=== PATIENT | male | born 1995 | race American Indian/Alaskan Native ===

== ENCOUNTER 2017-10-03 16:09 | Emergency (ER) | payer SELFPAY ==
--- NOTE | 2017-10-03 23:19 | Emergency Department Report ---
- General Chief Complaint: Upper Respiratory Infection Stated Complaint: COLD Time Seen by Provider: 10/03/17 23:08 Source: patient Mode of arrival: Ambulatory Limitations: No Limitations - History of Present Illness Initial Comments: 22-year-old male presents with complaint of one week of productive cough sore throat and body aches. Patient is awake alert and oriented 3. Speaking in full sentences no audible wheezing or stridor. also complaining of nasal congestion. Denies fevers or chills. Denies abdominal pain chest pain palpitations or shortness of breath at rest. Also primarily complaining of nasal discharge and nasal congestion. States he quit smoking 2 weeks ago. Minimal relief of symptoms with Mucinex. Possible sick contacts at work as per patient. MD Complaint: cough, sore throat, rhinorrhea, nasal congestion Onset/Timin -: week(s) Severity: moderate Improves With: nothing Context: sick contacts Associated Symptoms: rhinorrhea, nasal congestion, sore throat, cough Treatments Prior to Arrival: "cold medicine" - Related Data Previous Rx's Medication Instructions Recorded Last Taken Type ALBUTEROL Inhaler [ProAir HFA 2 puff IH QID PRN #1 inhalation 10/04/17 Unknown Rx Inhaler] Azithromycin [Zithromax Z-FREEDOM] 250 mg PO QDAY #1 pack 10/04/17 Unknown Rx Fluticasone [Flonase] 1 spray NS QDAY PRN #1 bottle 10/04/17 Unknown Rx Naproxen 500 mg PO BID PRN #30 tablet 10/04/17 Unknown Rx Phenylephrine/Dm/Acetaminop/GG 10 ml PO Q6H PRN #1 liquid 10/04/17 Unknown Rx [Mucinex Hsra-Fvb-Vbqwdmkygx Lq] Allergies Allergy/AdvReac Type Severity Reaction Status Date / Time No Known Allergies Allergy Unverified 10/03/17 16:21 ED Review of Systems ROS: Stated complaint: COLD Other details as noted in HPI Constitutional: malaise. denies: chills, fever Eyes: denies: eye pain, eye discharge, vision change ENT: denies: ear pain, throat pain Respiratory: cough. denies: shortness of breath, wheezing Cardiovascular: denies: chest pain, palpitations Endocrine: no symptoms reported Gastrointestinal: denies: abdominal pain, nausea, diarrhea Genitourinary: denies: urgency, dysuria Musculoskeletal: denies: back pain, joint swelling, arthralgia Skin: denies: rash, lesions Neurological: denies: headache, weakness, paresthesias Psychiatric: denies: anxiety, depression Hematological/Lymphatic: denies: easy bleeding, easy bruising ED Past Medical Hx - Past Medical History Previous Medical History?: No - Surgical History Past Surgical History?: No - Social History Smoking Status: Never Smoker Substance Use Type: None - Medications Home Medications: Home Medications Medication Instructions Recorded Confirmed Last Taken Type ALBUTEROL Inhaler [ProAir HFA 2 puff IH QID PRN #1 inhalation 10/04/17 Unknown Rx Inhaler] Azithromycin [Zithromax Z-FREEDOM] 250 mg PO QDAY #1 pack 10/04/17 Unknown Rx Fluticasone [Flonase] 1 spray NS QDAY PRN #1 bottle 10/04/17 Unknown Rx Naproxen 500 mg PO BID PRN #30 tablet 10/04/17 Unknown Rx Phenylephrine/Dm/Acetaminop/GG 10 ml PO Q6H PRN #1 liquid 10/04/17 Unknown Rx [Mucinex Suuz-Abz-Bsbpaxzmde Lq] ED Physical Exam - General Limitations: No Limitations General appearance: alert, in no apparent distress - Head Head exam: Present: atraumatic, normocephalic - Eye Eye exam: Present: normal appearance, PERRL, EOMI - ENT ENT exam: Present: normal orophraynx (no exudates. Uvula is midline no erythema ), mucous membranes moist - Neck Neck exam: Present: normal inspection - Respiratory Respiratory exam: Present: normal lung sounds bilaterally (lungs clear to auscultation bilaterally). Absent: respiratory distress - Cardiovascular Cardiovascular Exam: Present: regular rate, normal rhythm. Absent: systolic murmur, diastolic murmur, rubs, gallop - GI/Abdominal GI/Abdominal exam: Present: soft (abdomen soft nontender nondistended 4 quadrants), normal bowel sounds - Rectal Rectal exam: Present: deferred - Extremities Exam Extremities exam: Present: normal inspection - Back Exam Back exam: Present: normal inspection - Neurological Exam Neurological exam: Present: alert, oriented X3 - Psychiatric Psychiatric exam: Present: normal affect, normal mood - Skin Skin exam: Present: warm, dry, intact, normal color. Absent: rash ED Course Vital Signs 10/03/17 10/03/1718 16:18 20:24 23:44 Temperature 99.6 F 99.6 F Pulse Rate 107 H 102 H Respiratory 16 18 18 Rate Blood Pressure 122/77 130/80 O2 Sat by Pulse 96 99 Oximetry ED Medical Decision Making - Medical Decision Making A/P: Acute bronchitis/sinusitis 1-Mucinex extra strength, naproxen, Flonase, albuterol inhaler, will cover patient empirically with azithromycin as patient is a smoker 2-follow-up with primary care doctor 3-vital signs stable for discharge Critical care attestation.: If time is entered above; I have spent that time in minutes in the direct care of this critically ill patient, excluding procedure time. ED Disposition Clinical Impression: Acute bronchitis Qualifiers: Bronchitis organism: unspecified organism Qualified Code(s): J20.9 - Acute bronchitis, unspecified Disposition: TO HOME OR SELFCARE Is pt being admited?: No Does the pt Need Aspirin: No Condition: Stable Instructions: Acute Bronchitis (ED), Upper Respiratory Infection (ED), Cold Symptoms (ED) Prescriptions: ALBUTEROL Inhaler [ProAir HFA Inhaler] 2 puff IH QID PRN #1 inhalation PRN Reason: Shortness Of Breath Azithromycin [Zithromax Z-FREEDOM] 250 mg PO QDAY #1 pack Fluticasone [Flonase] 1 spray NS QDAY PRN #1 bottle PRN Reason: Congestion Naproxen 500 mg PO BID PRN #30 tablet PRN Reason: Fever Phenylephrine/Dm/Acetaminop/GG [Mucinex Qhyp-Fji-Daxqtfdhew Lq] 10 ml PO Q6H PRN #1 liquid PRN Reason: Cough Referrals: [facility] [Outside] - 3-5 Days [facility] [Outside] - 3-5 Days Forms: Work/School Release Form(ED) Time of Disposition: 00:07
[2017-10-03] MEDS ORDERED: MOTRIN PO ONE (23:33)
[2017-10-03] MEDS ORDERED: DUONEB *Not for PRN Use IH ONE (23:34)
[2017-10-04 00:12] VITALS: BP 108/61
--- NOTE | 2017-10-04 00:12 | XRay Report ---
FINAL REPORT EXAM: XR CHEST ROUTINE 2V HISTORY: cough worsening TECHNIQUE: PA and lateral views of the chest were submitted. FINDINGS: There are coarse interstitial markings in the lower lobes extending from the sumeet. The heart size is normal. Pleural fluid is not seen. The lungs are not congested. The bones and soft tissues well maintained. IMPRESSION: Coarse interstitial markings in the infrahilar areas as described. Interstitial pneumonia cannot be excluded.
== END 2017-10-04 00:18 | disposition home or self-care (01) ==
LOC: ED 16:09
DX: J20.9 Acute bronchitis, unspecified (principal)
CPT/HCPCS: 71046; 94640

== ENCOUNTER 2021-07-22 11:38 | Emergency (ER) | payer SELFPAY ==
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
[2021-07-22 12:12] VITALS: BP 112/75
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
--- NOTE | 2021-07-22 13:38 | XRay Report ---
Left knee radiograph, 3 views HISTORY: Injury COMPARISON: None FINDINGS: No acute fracture or malalignment. No significant joint capsular distention. Soft tissues a re unremarkable. Signer Name: Rick Galloway MD Signed: 07/22/2021 1:34 PM Workstation Name: [id number]
== END 2021-07-22 14:31 | disposition home or self-care (01) ==
LOC: ED 11:38
DX: S13.4XXA Sprain of ligaments of cervical spine, initial encounter (principal); S80.02XA Contusion of left knee, initial encounter; V49.9XXA Car occupant (driver) (passenger) injured in unspecified traffic accident, initial encounter; Y93.89 Activity, other specified; Y92.89 Other specified places as the place of occurrence of the external cause; Y99.8 Other external cause status
CPT/HCPCS: 72040; 99283